=== PATIENT | male | born 1955 | race Caucasian/White ===

== ENCOUNTER 2018-09-30 12:34 | Outpatient (CLI) | payer BC ==
--- NOTE | 2018-09-30 14:06 | ULT ---
VENOUS DUPLEX SONOGRAM RIGHT LOWER EXTREMITY: History: Right leg pain and edema. FINDINGS: Internal echogenicity with lack of flow and compression involves one of the duplicated posterior tibi al veins. There is good color and spectral doppler flow and compression of the common femoral vein in cluding the greater saphenous junction, the femoral, deep femoral and popliteal veins. IMPRESSION: Limited peripheral thrombus of the right lower extremity involving the posterior tibial vein. The tuan p venous system at or above the knee is not involved. Findings were called to Jannie at the office of Dr. Milner at 1320 hours. Code CR POS: [facility]
== END 2018-09-30 12:35 | disposition home or self-care (01) ==
LOC: ULT 12:34
PROVIDERS: ATTEND Specialist
DX: M79.89 Other specified soft tissue disorders (principal); I82.401 Acute embolism and thrombosis of unspecified deep veins of right lower extremity

== ENCOUNTER 2018-10-02 11:04 | Outpatient (CLI) | payer BC ==
--- NOTE | 2018-10-02 13:23 | ULT ---
ULTRASOUND VENOUS DOPPLER BILATERAL: Date: 10/02/18 HISTORY: Follow-up venous blood clot. COMPARISON: Venous Doppler ultrasound 2 days prior. FINDINGS: Real-time Underwood scale and color Doppler with spectral analysis of the bilateral lower extremity venous system was performed. The common femoral, femoral, proximal portions of greater saphenous and deep f emoral veins, as well as the popliteal and posterior tibial veins were interrogated. In the left lower extremity, there is normal flow, augmentation, and compression. In the right lower extremity, there is thrombosis of the right posterior tibial vein. No proximal burt ration. IMPRESSION: No significant proximal migration of the right posterior tibial vein thrombosis. POS: [facility]
== END 2018-10-02 11:05 | disposition home or self-care (01) ==
LOC: SCSULT 11:04
PROVIDERS: ATTEND Family Medicine
DX: S85.8 Injury of other blood vessels at lower leg level (principal); M79.662 Pain in left lower leg
CPT/HCPCS: 93970

== ENCOUNTER 2019-10-20 21:37 | Emergency (ER) | payer BC ==
[2019-10-20] MEDS ORDERED: Nitroglycerin 2% Ointment 1 INCH/1 GM Packet ONE (21:57)
[2019-10-20 22:05] LABS: #Basophils 0.1 thou/uL (0.0-0.2); #Eosinphils 0.2 thou/uL (0.0-0.7); #Lymphocytes 2.5 thou/uL (1.20-3.40); #Monocytes 0.6 thou/uL (0.11-0.59); #Neutrophils 3.4 thou/uL (1.40-6.50); %Basophils 1.5 % (0.0-1.0); %Eosinophils 3.4 % (0.0-10.0); %Lymphocytes 36.2 % (21.0-51.0); %Monocytes 9.1 % (0.0-10.0); %Neutrophils 49.8 % (42.0-75.0); Hemoglobin 15.4 g/dL (14.0-18.0); Mean Corpuscular HGB CONC 33.5 g/dL (32.0-36.0); Mean Corpuscular Hemoglobin 30.6 pg (27.0-31.0); Mean Corpuscular Volume 91.2 fL (78.0-98.0); Mean Platelet Volume 7.8 fL (7.4-10.4); Platelet Count 295 thou/uL (130-400); RBC Distribution Width 11.9 % (11.5-14.5); Red Blood Cell (RBC) Count 5.05 mill/uL (4.70-6.10); White Blood Cell (WBC) Count 6.8 thou/uL (4.8-10.8)
--- NOTE | 2019-10-20 22:14 | RAD ---
RADIOGRAPH CHEST 1 VIEW: DATE: 10/20/2019 HISTORY: 64-year-old male with chest pain FINDINGS: There are no airspace densities, pulmonary edema, pneumothorax, or cardiomegaly. The lateral costophr enic angles are sharp. IMPRESSION: No acute cardiopulmonary findings.
[2019-10-20 22:20] LABS: ALT (SGPT) 23 U/L (8-55); AST (SGOT) 20 U/L (5-34); Albumin 4.7 g/dL (3.4-4.8); Alkaline Phosphatase 79 U/L (40-110); Anion Gap 12 mmol/L (10-20); BUN (Urea Nitrogen) 16 mg/dL (8.4-25.7); Bilirubin, Total 0.5 mg/dL (0.2-1.2); CK (CPK) 58 U/L (30-200); Calc. Creatinine Clearance 0 mL/min (70-130); Calcium 10.2 mg/dL (7.8-10.44); Carbon Dioxide 28 mmol/L (23-31); Chloride 104 mmol/L (98-107); Estimated GFR-MDRD 66; Globulin 2.8 g/dL (2.4-3.5); Glucose 119 mg/dL (80-115); Potassium 3.7 mmol/L (3.5-5.1); Protein, Total 7.5 g/dL (5.8-8.1); Sodium 140 mmol/L (136-145)
[2019-10-20] MEDS ORDERED: Morphine 4 MG/ML VIAL ONE (22:48)
[2019-10-20] MEDS ORDERED: Ondansetron PF 4 MG/2 ML Vial ONE (22:49)
== END 2019-10-21 01:25 | disposition home or self-care (01) ==
LOC: ERS 21:37
DX: R07.9 Chest pain, unspecified (principal); I10 Essential (primary) hypertension; Z79.899 Other long term (current) drug therapy
CPT/HCPCS: 36415; 71045; 80053; 82550; 84484; 85025; 85379; 93005; 96374; 96375; J2270; J2405

== ENCOUNTER 2023-03-04 08:58 | Outpatient (CLI) | payer BC ==
[~2023-03-04 08:58] MED LIST: Magnevist 469MG/ML 20 ML VIAL ONE
== END 2023-03-04 08:59 | disposition home or self-care (01) ==
LOC: MRI 08:58
PROVIDERS: ATTEND Clinical Nurse Specialist Medical-Surgical
DX: M51.16 Intervertebral disc disorders with radiculopathy, lumbar region (principal); M47.26 Other spondylosis with radiculopathy, lumbar region; M48.061 Spinal stenosis, lumbar region without neurogenic claudication; Z98.890 Other specified postprocedural states
CPT/HCPCS: 72158; 82565; A9579

== ENCOUNTER 2023-04-08 07:33 | Outpatient (CLI) | payer BC ==
[2023-04-08 08:46] LABS: Hematocrit 43.7 % (38.8-50.0); Hemoglobin 14.2 g/dL (13.5-17.5); Mean Corpuscular HGB CONC 32.5 g/dL (32.0-36.0); Mean Corpuscular Hemoglobin 29.2 pg (27.0-33.0); Mean Corpuscular Volume 89.9 fl (81.2-95.1); Mean Platelet Volume 9.9 fl (7.4-10.4); Platelet Count 287 10x3/uL (150-450); RBC Distribution Width 12.6 % (11.5-14.5); Red Blood Cell (RBC) Count 4.86 10x6/uL (4.32-5.72); White Blood Cell (WBC) Count 5.9 10x3/uL (3.5-10.5)
[2023-04-08 09:39] LABS: Anion Gap 13 mmol/L (10-20); BUN (Urea Nitrogen) 21 mg/dL (8.4-25.7); Calc. Creatinine Clearance 0 mL/min (70-130); Calcium 9.5 mg/dL (7.8-10.44); Carbon Dioxide 23 mmol/L (23-31); Chloride 109 mmol/L (98-107); Estimated GFR 64; Glucose 127 mg/dL (80-115); Potassium 4.6 mmol/L (3.5-5.1); Sodium 140 mmol/L (136-145)
== END 2023-04-08 07:34 | disposition home or self-care (01) ==
LOC: LABBT 07:33
PROVIDERS: ATTEND Neurological Surgery
DX: Z01.818 Encounter for other preprocedural examination (principal); M54.16 Radiculopathy, lumbar region
CPT/HCPCS: 80048; 85027; 93005; 93010

== ENCOUNTER 2023-04-12 06:37 | Day surgery (SDC) | payer BC ==
[2023-04-08 08:02] VITALS: BMI 33.2
[2023-04-12] MEDS ORDERED: Thrombin 5000 UNITS/5 ML VIAL ONE (06:41)
[2023-04-12] MEDS ORDERED: EPINEPHrine 1 MG/ML AMP ONE (06:41)
[2023-04-12] MEDS ORDERED: Bupivacaine PF 0.5% 30 ML VIAL ONE (06:41)
[2023-04-12] MEDS ORDERED: CEFAZOLIN 2 GM VIAL ONE ×3 (06:59→12:10)
[2023-04-12] MEDS ORDERED: Sodium Chloride 0.9% 0 ML ONE (06:59)
[2023-04-12] MEDS ORDERED: Lidocaine 1% MPF 2 ML VIAL ONE (07:18)
[2023-04-12] MEDS ORDERED: Sodium Chloride 0.9% 100 ML ONE ×2 (07:18→12:10)
[2023-04-12] MEDS ORDERED: HYDROmorphone 0.5 MG/0.5 ML SYRINGE ONE (08:36)
[2023-04-12] MEDS ORDERED: fentaNYL PF 100 MCG/2 ML SYRINGE ONE (08:36)
[2023-04-12] MEDS ORDERED: Rocuronium Bromide 10 MG/ML (10ML VIAL) ONE (08:41)
[2023-04-12] MEDS ORDERED: Ondansetron PF 4 MG/2 ML Vial ONE (08:41)
[2023-04-12] MEDS ORDERED: PROPOFOL 200 MG/20 ML VIAL ONE (08:41)
[2023-04-12] MEDS ORDERED: Lidocaine 1% PF 5 ML VIAL ONE (08:41)
[2023-04-12] MEDS ORDERED: Ketorolac Tromethamine 30 MG/ML VIAL ONE (08:41)
[2023-04-12] MEDS ORDERED: Dexamethasone 20 MG/5 ML VIAL ONE (08:41)
[2023-04-12] MEDS ORDERED: NEOSTIGMINE 3 MG/3 ML SYR 3 MG/3 ML SYRINGE ONE (08:41)
[2023-04-12] MEDS ORDERED: Glycopyrrolate 0.2 MG/ML 5 ML SYRINGE ONE (08:41)
[2023-04-12] MEDS ORDERED: fentaNYL 50 mcg/mL 1 mL Vial ONE ×2 (10:31→11:15)
[2023-04-12] MEDS ORDERED: Tamsulosin HCl 0.4 MG CAP ONE (10:32)
[2023-04-12] MEDS ORDERED: HYDROcodone/Acetaminophen 5/325 mg Tablet ONE (17:35)
== END 2023-04-12 09:30 | disposition home or self-care (01) ==
LOC: SDC 06:37
PROVIDERS: ATTEND Neurological Surgery
PROC: 0SB20ZZ Excision of Lumbar Vertebral Disc, Open Approach (ICD-10-PCS; principal; 2023-04-12)
DX: M54.16 Radiculopathy, lumbar region (principal); M48.062 Spinal stenosis, lumbar region with neurogenic claudication; E78.5 Hyperlipidemia, unspecified; G89.29 Other chronic pain; E11.9 Type 2 diabetes mellitus without complications; Z98.1 Arthrodesis status; Z79.84 Long term (current) use of oral hypoglycemic drugs; Z79.899 Other long term (current) drug therapy
CPT/HCPCS: J0171; J1100; J1170; J1885; J2405; J2704; J3010; J3490; S0020

== ENCOUNTER 2024-08-28 11:20 | Outpatient (CLI) | payer MEDICARE | END 2024-08-28 11:21 | disposition home or self-care (01) | LOC: BICRAD 11:20 | PROVIDERS: ATTEND Nurse Practitioner Family | DX: R60.0 Localized edema (principal); M77.8 Other enthesopathies, not elsewhere classified ==

== ENCOUNTER 2025-04-21 09:47 | Outpatient (CLI) | payer MEDICARE | END 2025-04-21 09:48 | disposition home or self-care (01) | LOC: SCSMRI 09:47 | PROVIDERS: ATTEND Anesthesiology | DX: M50.123 Cervical disc disorder at C6-C7 level with radiculopathy (principal); M48.02 Spinal stenosis, cervical region; M48.03 Spinal stenosis, cervicothoracic region | CPT/HCPCS: 72141 ==